=== PATIENT | female | born 1990 | race Caucasian/White ===

== ENCOUNTER 2024-02-08 01:17 | Emergency (ER) | payer OTHER, SELFPAY ==
[2024-02-08] VITALS (29 sets, daily range): BP systolic 102–134; BP diastolic 51–84; PULSE 76–110; RESP 13–28; TEMP 36.4–36.8; O2SAT 98–100
--- NOTE | ~2024-02-08 | US_ITS ---
EXAMINATION: US pelvic complete DATE: 02/08/2024 07:16 INDICATION: Bilateral ovarian cysts. Assess for torsion. TECHNIQUE: Multiple transabdominal sonographic images of the pelvis were obtained. COMPARISON: None. FINDINGS: The uterus measures 8.8 x 3.8 x 5.3 cm. The endometrial complex measures 4 mm in thickness. Linear e chogenic and shadowing IUD in expected position within the endometrial canal. The right ovary measure s 4.3 x 3.2 x 3.8 with central 2.3 cm anechoic cyst and with a peripheral 7.1 x 5.3 x 4.3 cm anechoic cyst. Vascular flow seen in the right ovary on color Doppler. The left ovary measures 3.6 x 2.6 x 2. 1 cm, also with vascular flow on color Doppler. There is no free fluid in the pelvis. IMPRESSION: 1. A couple right ovarian cysts the larger measuring 7.1 cm in maximal diameter. 2. IUD in expected position. Reviewed, dictated and finalized at location A. IMPRESSION: 1. A couple right ovarian cysts the larger measuring 7.1 cm in maximal diameter . 2. IUD in expected position.
--- NOTE | ~2024-02-08 | CT_ITS ---
EXAMINATION: CT abdomen pelvis w con DATE: 02/08/2024 05:01 INDICATION: Abdominal pain TECHNIQUE: Computed tomography (CT) of the abdomen and pelvis was performed with 100 mL Omnipaque-350 intravenous contrast. Automated exposure control and iterative reconstruction technique were employe d. The dose-length product was 467.95 mGy-cm. COMPARISON: None FINDINGS: Mild dependent atelectasis in the left lower lobe. Heart size is normal. No pericardial or pleural ef fusion. Focal hepatic steatosis at the ligamentum teres. Gallbladder, spleen, pancreas, bilateral adr enal glands and kidneys are normal. Bladder is normal. T-shaped IUD in the normal-appearing anteverte d uterus. There are bilateral adnexal cysts, the largest on the right measuring 6.0 cm which demonstr ate greater than simple fluid attenuation, likely complex hemorrhagic. A couple additional smaller 3. 1 cm right right-sided and 1.3 cm left-sided adnexal cysts. Minimal amount of likely physiologic free fluid in the cul-de-sac. No abscess or free intraperitoneal gas. No pathologically enlarged abdomina l or pelvic lymphadenopathy. Mild lumbar levocurvature with minimal spondylosis. IMPRESSION: 1. Bilateral ovarian cysts the largest a 6.0 cm complex likely hemorrhagic right ovarian cyst with gr eater than simple fluid attenuation. Reviewed, dictated and finalized at location A. IMPRESSION: 1. Bilateral ovarian cysts the largest a 6.0 cm complex likely hemorrhagic righ t ovarian cyst with greater than simple fluid attenuation.
[2024-02-08] MEDS: MORPHINE SULFATE (*CRX) 4 MG/ML INJ IV PUSH ×2 (03:37→06:02)
[2024-02-08] MEDS: ONDANSETRON INJ 4 MG/2 ML VIAL IV PUSH ×2 (03:37→06:02)
[2024-02-08 03:38] LABS: BEDSIDEPREGUCG Negative
[2024-02-08 03:50] LABS: Basophils Absolute Auto 0.1 K/mm3 (0.0-0.1); Basophils Percent Auto 0.7 % (0.2-1.2); Eosinophils Absolute Auto 0.1 K/mm3 (0-0.3); Eosinophils Percent Auto 0.5 % (0-4.4); Hematocrit 36.5 % (37.0-47.0); Hemoglobin 12.3 g/dL (12.0-15.0); Immature Granulocyte Absolute 0.05 K/mm3 (0.00-0.031); Immature Granulocyte Percent A 0.3 % (0-0.5); Lymphocytes Absolute Auto 3.15 K/mm3 (0.9-3.2); Lymphocytes Percent Auto 20.4 % (18.3-44.2); Mean Corpuscular HGB Conc 33.7 g/dl (32-36); Mean Corpuscular Hemoglobin 31.3 pg (26-34); Mean Corpuscular Volume 92.9 fl (80-100); Mean Platelet Volume 9.9 fl (7.4-10.4); Monocytes Absolute Auto 0.8 K/mm3 (0.1-0.6); Monocytes Percent Auto 5.2 % (2.6-8.5); Neutrophils Absolute Auto 11.3 K/mm3 (1.3-6.7); Neutrophils Percent Auto 72.9 % (45.5-73.1); Platelet Count Result 272 k/mm3 (150-375); Red Blood Count 3.93 M/mm3 (4.2-5.4); Red Cell Distribution Width 12.4 % (11.5-14.5); White Blood Count 15.5 K/mm3 (4.5-10.0)
[2024-02-08 03:57] LABS: Add Urine Microscopic? YES; Appearance Urine Cloudy (Clear); Bacteria Urine None Seen /hpf; Bilirubin Urine Negative (Negative); Blood Urine Negative (Negative); Color Urine Yellow (Yellow); Glucose Urine UA Negative (Negative); Ketones Urine Negative (Negative); Leukocyte Esterase Ur Trace LEU/UL (Negative); Nitrate Urine Negative (Negative); Non Pathogenic Casts 0-2; Protein Urine Negative (Negative); RBC Urine 0-2 /hpf (0-2); Specific Grav Ur 1.017 (1.001-1.035); Squamous Epithelial Cell Urine Occasional /hpf (Few); Urobilinogen Urine 0.2 mg/dL (<2.0); WBC Urine 0-5 /hpf (0-3)
[2024-02-08 04:02] LABS: Alanine Aminotransferase 21 U/L (6-35); Albumin Level 4.1 g/dL (3.5-5.1); Alkaline Phosphatase 57 U/L (38-126); Anion Gap 9 mmol/L (4-12); Aspartate Amino Transferase 28 U/L (14-36); Bilirubin,Total 0.3 mg/dL (0.2-1.3); Blood Urea Nitrogen 12 mg/dL (7-17); Calcium 9.2 mg/dL (8.4-10.2); Carbon Dioxide 23 mmol/L (22-30); Chloride 106 mmol/L (98-107); Estimated CRCL calculation 84 ml/min; Estimated Glomerular Filt Rate > 60; Glucose 125 mg/dL (65-110); Lipase 65 U/L (23-300); Potassium 3.7 mmol/L (3.4-5.0); Sodium 138 mmol/L (137-145)
--- NOTE | 2024-02-08 04:50 | PC.NURSE ---
Patient taken to CT at this time.
--- NOTE | 2024-02-08 05:52 | ED.ABDPAIN ---
HPI - Abdominal Pain General Chief Complaint: Abdominal Pain Stated Complaint: rlq to flank pain, vomiting Time Seen by Provider: 02/08/24 05:43 Source: patient Mode of arrival: ambulatory Limitations: no limitations History of Present Illness HPI narrative: Patient presents with right lower quadrant which she said she states wraps around is also right flank pain. She states this has not happened before. This is associated with nausea and vomiting. She denies any prior history of any abdominal surgeries. She does not have an appetite. No history of kidney stones. She has been having 2 or 3 days of diarrhea stools. She had a kidney infection in 2002. Denies any vaginal bleeding or discharge. Denies dysuria. Patient states she has not been passing flatus. Related Data Allergies Allergy/AdvReac Type Severity Reaction Status Date / Time No Known Allergies Allergy Verified 02/08/24 03:37 PMFSH Past Medical History Medical History Right ovarian cyst Exam Narrative: GENERAL: , well-nourished, in moderate acute distress. HEAD: Normocephalic, atraumatic. EYES: Non injected, non icteric ENT: Nares clear, no rhinorrhea or epistaxis. NECK: Supple. CHEST: Speaking in full sentences. No respiratory distress. HEART: Regular rate and rhythm. . ABDOMEN: Soft, nondistended. Not tender to palpation throughout and without rigidity or guarding. Not peritoneal : No CVA tenderness bilaterally EXTREMITIES: Normal range of motion. No lower extremity edema. SKIN: Warm, dry, no rash. NEURO: No focal deficits. Alert and oriented x3. PSYCH: Normal mood and affect. Course Vital Signs Vital signs: Vital Signs Temperature 97.6 F 02/08/24 01:18 Pulse Rate 95 02/08/24 01:18 Respiratory Rate 16 02/08/24 01:18 Blood Pressure 123/58 L 02/08/24 01:18 Pulse Oximetry 98 02/08/24 01:18 Oxygen Delivery Room Air 02/08/24 01:18 Temperature 98.3 F 02/08/24 02:43 Pulse Rate 80 02/08/24 09:12 Respiratory Rate 16 02/08/24 09:12 Blood Pressure 126/84 02/08/24 09:12 Pulse Oximetry 98 02/08/24 09:12 Oxygen Delivery Room Air 02/08/24 01:18 MDM - Abdominal Pain MDM Narrative Medical decision making narrative: Patient presents with right lower quadrant/right-sided abdominal pain that radiates to right flank pain. In the emergency department she is afebrile with acceptable vital signs. Patient is resting comfortably, sleeping after multiple doses of pain medicine. Upon awakening she states her pain is improved however still present. Given the size of the findings on CT scan in out of an abundance precaution, will proceed with ultrasound imaging assess for ovarian torsion. Patient states she thought she had a history ovarian cyst on the right that was approximately 1.5cm last she knew. She follows with 2 different obGyns for this (one who takes her insurance and one who doesn't). Ultrasound re-demonstrates cysts but no collateral evidence supporting torsion. She is again resting comfortably. Suspicion for other etiology is low. Discussed the use of NSAIDs for pain and inflammation, strict ED return precautions, and the importance of following up with Obgyn. Dsicharged home in stable condition. Differential Diagnosis Differential diagnosis: Likely abdominal pain, acute appendicitis, calculus of kidney, constipation, diverticulitis, endometriosis, small bowel obstruction and other (Biliary etiology) Lab Data Attestation: I reviewed the patient's lab results. Lab results narrative: Leukocytosis 02/08/24 03:29 02/08/24 03:29 Labs: Lab Results 02/08/24 02/08/24 Range/Units 03:29 03:36 WBC 15.5 H (4.5-10.0) K/mm3 RBC 3.93 L (4.2-5.4) M/mm3 Hgb 12.3 (12.0-15.0) g/dL Hct 36.5 L (37.0-47.0) % MCV 92.9 (80-100) fl MCH 31.3 (26-34) pg MCHC 33.7 (32-36) g/dl RDW 12.4 (11.5-14
[2024-02-08] MEDS: SODIUM CHLORIDE 0.9% IV 1,000 ML 999 ML IV CONT (06:02)
--- NOTE | 2024-02-08 07:03 | PC.NURSE ---
Patient taken to US via w/c at this time.
[2024-02-08] MEDS: KETOROLAC 15 MG/ML VIAL (*BKC) IV PUSH (07:27)
== END 2024-02-08 09:15 | disposition home or self-care (01) ==
PROVIDERS: Emergency Provider Student in an Organized Health Care Education/Training Program
DX: D72.829 Elevated white blood cell count, unspecified (principal); N83.202 Unspecified ovarian cyst, left side; N83.201 Unspecified ovarian cyst, right side
CPT/HCPCS: 36415; 74177; 76856; 80053; 81001; 81025; 83690; 85025; 96361; 96374; 96375; 96376; 99284; J1885; J2270; J2405; J7030; Q9967

== ENCOUNTER 2024-02-28 09:36 | Outpatient (CLI) | payer OTHER, SELFPAY ==
[2024-02-28 10:03] LABS: Hematocrit 37.5 % (37.0-47.0); Hemoglobin 12.6 g/dL (12.0-15.0); Mean Corpuscular HGB Conc 33.6 g/dl (32-36); Mean Corpuscular Hemoglobin 31.8 pg (26-34); Mean Corpuscular Volume 94.7 fl (80-100); Platelet Count Result 396 k/mm3 (150-375); Red Blood Count 3.96 M/mm3 (4.2-5.4); White Blood Count 10.4 K/mm3 (4.5-10.0)
== END 2024-02-28 09:37 | disposition home or self-care (01) ==
PROVIDERS: PCP Internal Medicine; Visit Provider Student in an Organized Health Care Education/Training Program
DX: N83.209 Unspecified ovarian cyst, unspecified side (principal)
CPT/HCPCS: 36415; 85027; 86850; 86900; 86901

== ENCOUNTER 2024-03-05 01:52 | Day surgery (SDC) | payer OTHER, SELFPAY ==
[2024-02-26 14:43] VITALS: BMI 30.1
--- NOTE | 2024-02-26 14:54 | SUR.PREOP ---
Report to the Outpatient Waiting Room, entrance under the green pavilion located off [facility], at time 10:00a.m on date 03/05/2024. Planned Procedure Time: 12:00p.m..? Time changes happen often and if your time is changed the preop area will call you the afternoon before. - You and your visitor will be asked to self-screen and do not enter if you have any COVID symptoms. Please call surgeon if you need to reschedule. - A mask is optional within the hospital at this time. Patients may have clear liquids (water, carbonated beverages, clear teas, apple juice) until 3 hours prior to surgery with a maximum of 20 ounces. - No food from midnight until time of surgery and no smoking - Infants may have breast milk until 4 hours before surgery, formula 6 hours prior to surgery. - Children will be allowed to drink immediately following surgery.? If applicable, please bring a bottle or sippy cup to assist with drinking. Juice, water, soda, and popsicles are readily available.? For infants on formula, please bring formula the day of surgery.? Pacifiers are allowed. Take only the following medications with a SIP of water on the morning of surgery: N/A DO NOT STOP ANY OF YOUR OTHER PRESCRIPTION MEDICATIONS PRIOR TO SURGERY EXCEPT THE FOLLOWING Medications to discontinue per physician N/A Date to take last dose N/A Please no make-up, nail azeri, hairspray, perfume, deodorant, or body powder the day of surgery.? No jewelry (including any body piercings) or valuables the day of surgery, leave them at home.? Please take a shower or bath the night before, or the morning of, surgery with an antibacterial soap.? Wear comfortable, loose fitting clothing.? Children are encouraged to wear pajamas. - Jewelry must be removed prior to entering the operating room.? Rings and piercings that are not removed may be cut off. - The hospital will not accept responsibility for valuables.? - Please leave all valuables, including medications, at home the day of surgery. If you are going home after surgery, a licensed furniture mover driver must drive you home.? - NO public transportation without another adult if you receive anesthesia. - We recommend that an adult stay with you for 24 hours following discharge. - We also recommend that you do not drive, make important decision, drink alcoholic beverages, or take any drugs that were not prescribed by your health care provider for at least 24 hours after your discharge time. For Pediatric surgeries, we recommend two adults accompany the child home. Follow any additional instructions given to you from your surgeon. Telephone instructions given to Ruben Alvarenga and asked if any additional questions and then verbalized understanding. Patient advised to call surgeon office or pre surgery nurse liaison [phone] if any additional questions.
[2024-03-05] VITALS (9 sets, daily range): BP systolic 102–123; BP diastolic 54–67; PULSE 79–104; RESP 14–20; TEMP 36.3–36.6; O2SAT 16–100; BMI 29.1
--- NOTE | 2024-03-05 09:41 | PM.IMHP ---
H&P: HPI History of Present Illness Date/Time: 03/05/24 09:41 Chief Complaint: Ovarian cyst pelvic pain Narrative: 33-year-old female who presents for laparoscopic ovarian cystectomy. Patient presents to the emergency room on 02/08/2024 with complaint of acute onset right lower quadrant pain. Patient states the pain was radiating around to her lower back. Patient had CT scan and ultrasound in the emergency room which showed bilateral ovarian cysts. The largest cyst was noted on the right ovary and noted to be 7 cm. Patient states her pain has improved greatly since her ER visit. She still reports of bothersome dull achy shane Review of Systems Cardiovascular: Cardiovascular: Denies chest pain, Denies leg edema, Denies palpitations, Denies dyspnea and Denies dyspnea on exertion Respiratory: Respiratory: Denies cough, Denies dyspnea and Denies dyspnea on exertion Gastrointestinal: Gastrointestinal: Denies abdominal pain, Denies constipation, Denies diarrhea, Denies nausea and Denies vomiting Genitourinary: Genitourinary: Denies hematuria, Denies urinary frequency, Denies dysuria, Denies pelvic pain, Denies urinary incontinence and Denies vaginal discharge Neurologic: Reports system reviewed and no additional complaints, except as documented Psychiatric: Psychiatric: Reports no additional psychiatric complaints Endocrine: Endocrine: Denies palpitations PMFSH Past Medical History Medical History Right ovarian cyst Social History Social History (Updated 02/12/24 @ 09:52 by Luna Hooker MA) Smoking packs per day: 1 Smoking cigarettes per day: 20.0 Years smoked: 15 Smoking pack-years: 15.00 Smoking status: Current every day smoker Tobacco type: cigarettes Alcohol intake: never Substance use: current Substance use type: marijuana Other substance usage details: 10mg edibles, daily Current Housing: Decline to Answer Concerned About Future Housing: Decline to Answer Difficulty Paying Gas/Electric Bills: Decline to Answer Difficulty Paying for Meds: Decline to Answer Currently Unemployed: Decline to Answer Education: Decline to Answer Difficulty w/ Childcare or Family Care: Decline to Answer Living arrangements: with family Occupation/Education: unemployed Gender identity (if verbalized by the patient): Female Sexual Orientation (if Verbalized by the Patient): Lesbian, Hurtado, or Homosexual Spiritual care concerns: No Meds Home Medications and Allergies Home Medications Medication Instructions Recorded Confirmed Type Women's Multivitamin 1 tablet PO DAILY 02/26/24 02/26/24 History Allergies Allergy/AdvReac Type Severity Reaction Status Date / Time No Known Allergies Allergy Verified 02/26/24 14:43 Exam Const: General: no acute distress Eyes: EOM: EOMs intact bilaterally Neck: Neck: supple Thyroid: thyroid normal Chest: Breast/axilla inspection: normal inspection of the breasts Breast/axilla palpation: normal palpation of the breasts, normal palpation of the axillae and no axillary lymphadenopathy Resp: Effort & Inspection: normal respiratory effort Auscultation: clear to auscultation bilaterally Cardio: Rate: regular rate Rhythm: regular rhythm GI: Inspection: non-distended GI Palp: Yes Soft to palpation, No Tenderness to palpation present (GI) and No Guarding due to palpation present (GI) Auscultation: normal bowel sounds : General: No bladder normal to palpation External Female Exam: normal external appearance Speculum Exam - Vagina: normal vaginal discharge and No vaginal bleeding Speculum Exam - Cervix: nontender Bimanual exam- vagina & uterus: No bladder normal to palpation and No Cervical tenderness present OB/external & speculum: No vaginal bleeding Skin: General skin exam: normal color and no rashes or lesions noted Neuro: Cognition (Neuro): normal cognition Speech: norm
[2024-03-05] MEDS: ACETAMINOPHEN 500 MG TABLET 1000 MG PO (10:51)
[2024-03-05] MEDS: KETOROLAC 15 MG/ML VIAL (*BKC) IV PUSH (10:51)
[2024-03-05 11:19] LABS: Beta HCG Quantitative < 2.39 mIU/ML
--- NOTE | 2024-03-05 11:20 | WPDHPUPDATE1 ---
History and Physical Update Update Date/Time: 03/05/24 11:20 33 yo female who presents for laparoscopic R ovarian cystectomy. Will add possible R oophorectomy. All questions answered today History and Physical has been reviewed, including an updated exam of the patient. There are NO changes in the patient's condition. Risks, benefits, and alternatives have been discussed and questions answered. Patient agrees to proceed with procedure.
--- NOTE | 2024-03-05 11:38 | P.PNAN_ITS ---
Anes - Initial Pre Proc Eval Procedure: Operation Date: 03/05/24 12:00 Proposed Procedures p Laparoscopic Right Ovarian Cystectomy - Alok Mclain MD Date/Time: 03/05/24 11:38 Surgeon: Alok Mclain MD Pre Op Diagnosis: right ovarian cyst Patient Data Age: 33 Gender: F Height: 1.6 m Weight: 74.7 kg Last Vital Signs Temp 36.6 C 03/05/24 11:10 Pulse 88 03/05/24 11:10 BP 106/57 L 03/05/24 11:10 Pulse Ox 100 03/05/24 11:10 O2 Del Method Room Air 03/05/24 11:10 Allergies Allergy/AdvReac Type Severity Reaction Status Date / Time No Known Allergies Allergy Verified 02/26/24 14:43 Home Medications Medication Instructions Recorded Confirmed Type Women's Multivitamin 1 tablet PO DAILY 02/26/24 02/26/24 History Laboratory Tests 03/05/24 10:39 Beta HCG, Quant < 2.39 mIU/ML Patient hx anesthesia problems: none Family hx anesthesia problems: none Results Review: All pre-operative results and documents have been reviewed as part of the pre- operative evaluation. [facility] Past Medical History Medical History Right ovarian cyst Social History Social History Smoking packs per day: 1 Smoking cigarettes per day: 20.0 Years smoked: 15 Smoking pack-years: 15.00 Smoking status: Current every day smoker Tobacco type: cigarettes Alcohol intake: never Substance use: current Substance use type: marijuana Other substance usage details: 10mg edibles, daily Current Housing: Decline to Answer Concerned About Future Housing: Decline to Answer Difficulty Paying Gas/Electric Bills: Decline to Answer Difficulty Paying for Meds: Decline to Answer Currently Unemployed: Decline to Answer Education: Decline to Answer Difficulty w/ Childcare or Family Care: Decline to Answer Living arrangements: with family Occupation/Education: unemployed Gender identity (if verbalized by the patient): Female Sexual Orientation (if Verbalized by the Patient): Lesbian, Hurtado, or Homosexual Spiritual care concerns: No Anes - Eval Final PreProcedure Day of Procedure 03/05/24 11:38 Patient weight: overweight Heart: regular rate and rhythm Lungs: clear to auscultation Airway: Mallampati scale class II Neurological: alert and oriented Last oral intake: >/= 8 hours ASA classification: II Emergent: no Anesthetic plan: proceed Anesthesia type and monitoring: general ETT and standard monitoring Results Review: All pre-operative results and documents have been reviewed as part of the pre- operative evaluation. Informed Consent: The patient's anesthetic plan and its attendant risks and benefits were discussed with the patient/family/POA. Questions were solicited and answers provided to the satisfaction of the patient/family/POA.
[2024-03-05] MEDS: LACTATED RINGERS 1,000 ML 30 ML IV CONT ×2 (11:43→13:51)
[2024-03-05] MEDS: LIDO 1%/EPINEPHRINE 1:100,000 20 ML VIAL 30 ML INFILTRATE (12:35)
--- NOTE | 2024-03-05 13:20 | W.PM.PROC2 ---
Procedure Note - Detailed Date of Procedure 03/05/24 Pre-op Diagnosis right ovarian cyst Post-op Diagnosis Same Procedure Performed laparoscopic right ovarian cystectomy Right salpingo-oophorectomy Surgeon Alok Mclain MD Anesthesia General Indications large Right ovarian cyst, pelvic pain Findings Large 7 cm right hemorrhagic ovarian cyst, ovary and cyst had torsed around itself 2 full rotations Description of Procedure The patient was taken to the operating room where general endotracheal anesthesia was undertaken and found to be adequate. She was then prepped and draped in the dorsal lithotomy position and placed in adjustable stirrups. A pre-operative team brief and a time out were completed. A catheter was placed to drain the bladder. Retractors were placed placed in the vagina and the cervix was identified. An acorn uterine manipulator was placed. Attention was then turned to the abdomen which was anesthetized umbilically with injected anesthestic. A 8 mm skin incision was made in the umbilicus. A 5 mm optical trocar was then placed with direct camera visualization of the abdominal layers during placement. The trocar stylet was removed and the camera was used to verify intra-abdominal placement. CO2 insufflation was then connected and resumed. The pelvis was inspected. A left lower quadrant 5 mm port was placed, in addition to a right lower quadrant 5 mm port in the standard fashion after using local anesthetic. The pelvis was inspected. The right ovary was noted to have an enlarged hemorrhagic cyst. The cyst had measured 7 cm on ultrasound. The cyst was adherent to the posterior uterine serosa and the pelvic sidewall of the ovarian fossa. Cyst was also noted to be torsed with 2 full rotations at its stalk. Attempt was made to gently peel the ovarian cyst off of its adhesion from the posterior uterine serosa and pelvic sidewall. The ovarian cyst was ruptured in an attempt to separate the cyst adhesions. Dark brown old bloody contents were expressed from the cyst, similar to an endometrioma. The cyst and its contents were copiously irrigated. The remainder of the cyst wall was then from its adhesions. The ovary was de torsed around its stalk 2 times. At this point the decision was made to removed the ovary and cyst as it was difficult to delineate any healthy viable ovarian tissue. The ovary and cyst were ligated at its stalk with the LigaSure device. Fallopian tube had been involved within the cyst and ovary due to torsion. The right fallopian tube was removed with ovary and cyst. Some ovarian cyst wall was noted to still be adherent to the posterior uterine serosa. Gentle traction was used to removed contents off the uterine serosa. In doing so there was a small laceration to the uterine serosa. Laceration was made hemostatic with monopolar cautery and a single interrupted stitch of 3-0 V lock suture. The umbilical incision was extended to allow for a 10 mm laparoscopic port. A 10 mm endo pouch bad was introduced to the abdomen. Right ovary and cystic contents were placed within the Endo pouch. The pouch and its contents were removed through the umbilical incision. The surgical field was thoroughly irrigated using normal saline. All surgical beds were noted to be hemostatic. A Ashish Thomasen device was used to close the umbilical fascial incision with 0 Vicryl. The abdomen was relieved of all CO2 gas. All remaining trocars were removed from the abdomen. Sponge, lap and needle counts were correct. All skin incisions were closed with 4-0 Vicryl suture subcuticularly. The uterine manipulator was removed from the uterus. Hemostasis of the cervix was noted. The urinary catheter was removed. The patient was taken out of dorsal lithotomy position. Anesthesia was reversed. The patient was taken to the PACU. Estimated Blood Loss 100 Urine Output 25 Drains No Packing No Pathology Yes ( Right ovary, right ovari
[2024-03-05] MEDS: fentaNYL CITRATE INJ (*CRX) 100 MCG/2 ML VIAL 25 MCG IV PUSH ×4 (13:59→14:19)
[2024-03-05] MEDS: oxyCODONE HCL (*CRX) 5 MG TAB IR PO (14:53)
== END 2024-03-05 15:45 | disposition home or self-care (01) ==
PROVIDERS: Anesthesiology; PCP Internal Medicine; Visit Provider Student in an Organized Health Care Education/Training Program
PROC: (CPT 49320; principal; 2024-03-05 12:00)
DX: D27.0 Benign neoplasm of right ovary (principal); N83.511 Torsion of right ovary and ovarian pedicle; N83.11 Corpus luteum cyst of right ovary; F17.210 Nicotine dependence, cigarettes, uncomplicated; F12.90 Cannabis use, unspecified, uncomplicated
CPT/HCPCS: 58661; 36415; 84702; 88305; A9270; J1100; J1170; J1200; J1885; J2250; J2405; J2704; J3010; J7030; J7120